=== PATIENT | male | born 1975 | race Caucasian/White ===

== ENCOUNTER 2022-03-29 01:18 | Emergency (ER) | payer OTHER ==
[~2022-03-29] VITALS: Ht 182.9 cm; Wt 83.9 kg
[2022-03-29] MEDS ORDERED: CEFP200 PO (03:36)
[2022-03-29] MEDS ORDERED: OCUFLOX510 RIGHTEAR (03:36)
[2022-03-29] MEDS ORDERED: IBUP800 PO (03:37)
== END 2022-03-29 03:47 | disposition home or self-care (01) ==
LOC: ER 01:18
DX: H66.91 Otitis media, unspecified, right ear (principal); H60.91 Unspecified otitis externa, right ear; F17.220 Nicotine dependence, chewing tobacco, uncomplicated
CPT/HCPCS: A9270